=== PATIENT | male | born 1945 | race Caucasian/White ===

== ENCOUNTER 2019-10-09 08:26 | Emergency (ER) | payer MEDICARE ==
[~2019-10-09] VITALS: Ht 182.9 cm; Wt 90.0 kg
[~2019-10-09 08:26] MED LIST: ADULT ASA81 M1 OR; ADULT ASPIRIN E81 MG PO; ANTARA130 MG OR; FLOMAX0.4 M1 PO; LISINOPRIL20 MG PO; NEXIUM40 M1 OR
[2019-10-09 09:11] LABS: HEMATOCRIT 41.2 % (39.0-50.0); HEMOGLOBIN 13.8 g/dl (14.0-18.0); IMMATURE GRANULOCYTES 0.2 % (0.0-5.0); MEAN CORPUSCULAR HGB 28.8 pG CALC (26.0-32.0); MEAN CORPUSCULAR HGB CONC 33.5 g/dL CAL (32.0-36.0); NEUT# 2.74 thou/uL (1.82-7.42); RED BLOOD COUNT 4.79 mill/uL (4.70-6.10); RED CELL DISTRI WIDTH 12.7 % (11.5-15.5)
[2019-10-09 09:29] LABS: ALBUMIN 3.9 g/dL (3.2-5.0); ALKALINE PHOSPHATASE 50 u/l (38-126); AMYLASE 88 u/l (30-110); ANION GAP 9 (6-22 (CALC)); BILIRUBIN, TOTAL 0.7 mg/dL (0.0-1.4); BUN 18 mg/dL (8-23); BUN/CREATININE RATIO 20 (12-20 (CALC)); CARBON DIOXIDE 30 mmol/l (22-30); CHLORIDE 105 mmol/l (95-108); CREATININE 0.9 mg/dL (0.7-1.3); GFR > 60 ML/MIN (>=60 (CALC)); GFR FOR AFR.AMER. > 60 ML/MIN (>=60 (CALC)); LIPASE 39 u/l (23-300); POTASSIUM 4.1 mmol/l (3.5-5.1); SGOT/AST 21 u/l (19-48); SODIUM 139 mmol/l (137-146)
[2019-10-09 10:23] LABS: URINE BILIRUBIN - DIPSTICK NEGATIVE (NEGATIVE); URINE BLOOD DIPSTICK TRACE-INTACT (NEGATIVE); URINE COLOR YELLOW; URINE GLUCOSE - DIPSTICK NEGATIVE (NEGATIVE); URINE KETONE NEGATIVE (NEGATIVE); URINE LEUK ESTERASE NEGATIVE (NEGATIVE); URINE NITRITE - DIPSTICK NEGATIVE (Negative); URINE PH 5.5 (4.5-8.0); URINE PROTEIN - DIPSTICK NEGATIVE (NEG-TRACE); URINE UROBILINOGEN - DIPSTICK 0.2 E.U./dL (0.2)
[2019-10-09] MEDS ORDERED: CLARITHROMYC500 M2 PO (11:01)
[2019-10-09 12:01] VITALS: BP 113/59
== END 2019-10-09 12:12 | disposition short-term general hospital (02) ==
LOC: ED 08:26
DX: I24.9 Acute ischemic heart disease, unspecified (principal); I10 Essential (primary) hypertension
CPT/HCPCS: J1650

== ENCOUNTER 2021-06-21 07:45 | Day surgery (SDC) | payer MEDICARE ==
[~2021-06-21] VITALS: Ht 182.9 cm; Wt 88.5 kg
[~2021-06-21 07:45] MED LIST changes: +CLARITHROMYC500 M2 PO; +LIPITOR40 M1 PO; +LISINOPRIL40 MG PO; +MONTELUKAST SOD10 MG PO; +NIFEDIPINE ER30 M1 PO
[2021-06-21 10:00] VITALS: BP 122/81
== END 2021-06-21 10:07 | disposition home or self-care (01) ==
LOC: ENDO 07:45
PROVIDERS: ATTEND Surgery
PROC: 0DJD8ZZ Inspection of Lower Intestinal Tract, Via Natural or Artificial Opening Endoscopic (ICD-10-PCS; principal; 2021-06-21)
DX: Z12.11 Encounter for screening for malignant neoplasm of colon (principal); K57.30 Diverticulosis of large intestine without perforation or abscess without bleeding; K64.8 Other hemorrhoids; I10 Essential (primary) hypertension; Z86.010 Personal history of colon polyps